=== PATIENT | female | born 1965 | race African-American/Black ===

== ENCOUNTER 2016-11-24 16:34 | Emergency (ER) | payer OTHER ==
--- NOTE | 2016-11-24 17:23 | ER Document Report ---
ED General - General Mode of Arrival: Medic Information source: Patient TRAVEL OUTSIDE OF THE [place] IN LAST 30 DAYS: No - HPI Patient complains to provider of: Syncopal Episode Onset: Just prior to arrival Onset/Duration: Sudden Associated symptoms: Body/muscle aches, Nonproductive cough, Fever, Headache, Nausea, Sinus pain/drainage, Sweating, Weakness Similar symptoms previously: Yes - October 2016 <STACEY ANDREWS - Last Filed: 11/24/16 17:24> <FRIDA PEACE - Last Filed: 11/24/16 18:49> - General Chief Complaint: Passed Out Prior to Arrival Stated Complaint: POSSIBLE SYNCOPE Notes: Patient is a 51-year-old female presenting to the emergency department from urgent care via EMS after a possible syncopal episode just prior to arrival. Patient states that she was at urgent care for flulike symptoms including body aches, cough, congestion, headache, diaphoresis, and throat pain. Patient states while she was waiting, she became weak and wanted to lay down her car, so she was on her way to the car when she felt like she was going to pass out. Patient decided to come inside and let the office manager receptionist know, and that is when she states that she passed out at the desk. Patient reports having similar symptoms in October 2016, but she did not have a syncopal episode. She states that she went to urgent care and received an antibiotic. (STACEY ANDREWS) - Related Data Allergies/Adverse Reactions: Penicillins Allergy (Verified 01/26/15 19:04) Past Medical History - General Information source: Patient - Social History Smoking Status: Never Smoker Family History: Reviewed & Not Pertinent - Immunizations Hx Diphtheria, Pertussis, Tetanus Vaccination: Yes <STACEY ANDREWS - Last Filed: 11/24/16 17:24> Review of Systems - Review of Systems Constitutional: See HPI, Diaphoresis, Fever, Weakness, Other - Body Aches EENT: See HPI, Nose congestion, Throat pain - "scratchy", Other - Sneezing Cardiovascular: See HPI, Syncope Respiratory: See HPI, Cough Gastrointestinal: See HPI, Nausea Genitourinary: No symptoms reported Female Genitourinary: No symptoms reported Musculoskeletal: No symptoms reported Skin: No symptoms reported Hematologic/Lymphatic: No symptoms reported Neurological/Psychological: No symptoms reported -: Yes All other systems reviewed and negative <JULIANAGATOSTACEY - Last Filed: 11/24/16 17:24> Physical Exam - General General appearance: Alert - HEENT Head: Normocephalic, Atraumatic Eyes: Normal Pupils: PERRL Ears: Normal Tympanic membrane: Normal Mouth/Lips: Normal Pharynx: Normal - Respiratory Respiratory status: No respiratory distress Chest status: Nontender Breath sounds: Normal Chest palpation: Normal - Cardiovascular Rhythm: Regular Heart sounds: Normal auscultation Murmur: No - Abdominal Inspection: Normal Tenderness: Nontender - Back Back: Normal, Nontender - Extremities General upper extremity: Normal inspection, Nontender General lower extremity: Normal inspection, Nontender - Neurological Neuro grossly intact: Yes Cognition: Normal Orientation: AAOx4 [place] Coma Scale Eye Opening: Spontaneous [place] Coma Scale Verbal: Oriented [place] Coma Scale Motor: Obeys Commands [place] Coma Scale Total: 15 Speech: Normal - Psychological Associated symptoms: Normal affect, Normal mood - Skin Skin Temperature: Warm Skin Moisture: Dry Skin Color: Normal <STACEY ANDREWS - Last Filed: 11/24/16 17:24> Course <VINICIO ANDREWSSSICA - Last Filed: 11/24/16 17:24> - Laboratory Result Diagrams: 11/24/16 17:45 11/24/16 17:45 - EKG Interpretation by Dc EKG shows normal: Sinus rhythm Rate: Normal Rhythm: NSR <FRIDA PEACE Librado - Last Filed: 11/24/16 18:49> - Re-evaluation Re-evalutation: 11/24/16 18:41 Clinically the patient appears to have acute sinusitis. She was not technically orthostatic by the numbers but was symptomatic when up. We will give her a fluid bolus. She is feeling better and will plan discharge after the fluids are completed. We will treat the sinusitis at this point. Her flu test was negative. She had prodromal symptoms. She has no Underlying cardiac structural disease or cardiac history. (FRIDA PEACE) - Vital Signs Vital signs: Temp Pulse Resp BP Pulse Ox 100.0 F 95 18 122/73 96 11/24/16 16:45 11/24/16 18:31 11/24/16 16:45 11/24/16 18:31 11/24/16 16:45 - Laboratory Laboratory results interpreted by me: 11/24/16 11/24/16 17:45 17:45 RBC 5.59 H MCV 70 L MCH 22.1 L MCHC 31.7 L RDW 16.1 H Seg Neutrophils % 81.9 H Lymphocytes % 7.3 L Total Protein 8.3 H - EKG Interpretation by Me Additional EKG results interpreted by me: 11/24/16 18:20 Borderline T-wave flattening/abnormalities but nonspecific. (FRIDA PEACE) Discharge <STACEY ANDREWS - Last Filed: 11/24/16 17:24> <FRIDA PEACE - Last Filed: 11/24/16 18:49> - Discharge Clinical Impression: Syncope, Acute sinusitis Condition: Good Disposition: HOME, SELF-CARE Additional Instructions: SYNCOPAL EPISODE: Syncope (fainting or near-fainting) can occur from many different health problems. Or it can be a simple fainting spell requiring no treatment. It is safe for you to go home, but further evaluation will likely be necessary. Your work-up may include tests for internal bleeding, heart disease, medication problems, or near-strokes. Tests are not always required, however, depending on the nature of your problem. The warning signs of an impending faint include: dizziness, lightheadedness , nausea, hot flashes, tingling, and weakness. If this happens, lay down and put your feet up, then wait until all of these symptoms have passed before standing up again. If these episodes become recurrent, or if you develop chest pain, heart palpitations, mental confusion, blurred vision, or headache, then you should call the physician, or go to the emergency room. Prescriptions: Azithromycin [Zithromax 250 mg Tablet] 250 mg PO ASDIR PRN #6 tablet PRN Reason: Referrals: [facility] [Provider Group] - Follow up as needed Scribe Attestation: 11/24/16 18:45 I personally performed the services described in the documentation, reviewed and edited the documentation which was dictated to the scribe in my presence, and it accurately records my words and actions. (FRIDA PEACE) Scribe Documentation - Scribe Written by Scribe:: Stacey Andrews 11/24/2016 [id number] acting as scribe for :: Chava <STACEY ANDREWS - Last Filed: 11/24/16 17:24>
[2016-11-24 18:11] LABS: ABSOLUTE BASOPHILS # (AUTO) 0.1 10^3/uL (0.0-0.2); ABSOLUTE EOSINOPHILS # (AUTO) 0.1 10^3/uL (0.0-0.6); ABSOLUTE LYMPHOCYTES (AUTO) 0.6 10^3/uL (0.5-4.7); ABSOLUTE MONOCYTES (AUTO) 0.7 10^3/uL (0.1-1.4); ABSOLUTE NEUT (AUTO) 6.5 10^3/uL (1.7-8.2); BASOPHILS % (AUTO) 0.7 % (0-2); EOSINOPHILS % (AUTO) 1.2 % (0-6); HEMATOCRIT 38.9 % (36.0-47.0); HEMOGLOBIN 12.3 g/dL (12.0-15.5); LYMPHOCYTES % (AUTO) 7.3 % (13-45); MEAN CORPUSCULAR HEMOGLOBIN 22.1 pg (27.0-33.4); MEAN CORPUSCULAR HGB CONC 31.7 g/dL (32.0-36.0); MEAN CORPUSCULAR VOLUME 70 fl (80-97); MONOCYTES % (AUTO) 8.9 % (3-13); RED BLOOD COUNT 5.59 10^6/uL (3.72-5.28); RED CELL DISTRIBUTION WIDTH 16.1 % (11.5-14.0); SEGMENTED NEUTROPHILS % (AUTO) 81.9 % (42-78); WHITE BLOOD COUNT 7.9 10^3/uL (4.0-10.5)
[2016-11-24 18:31] LABS: ALANINE AMINOTRANSFERASE 28 U/L (9-52); ALBUMIN 4.4 g/dL (3.5-5.0); ALKALINE PHOSPHATASE 96 U/L (38-126); ANION GAP 13 (5-19); ASPARTATE AMINO TRANSFERASE 24 U/L (14-36); BILIRUBIN,DIRECT 0.1 mg/dL (0.0-0.4); BILIRUBIN,TOTAL 0.5 mg/dL (0.2-1.3); BLOOD UREA NITROGEN 9 mg/dL (7-20); CALCIUM 9.5 mg/dL (8.4-10.2); CARBON DIOXIDE 27 mmol/L (22-30); CHLORIDE 102 mmol/L (98-107); CREATINE KINASE 89 U/L (30-135); CREATININE RESULT 0.97 mg/dL (0.52-1.25); GLUCOSE 108 mg/dL (75-110); POTASSIUM 3.8 mmol/L (3.6-5.0); SODIUM 141.7 mmol/L (137-145); TOTAL PROTEIN 8.3 g/dL (6.3-8.2)
[2016-11-24 18:34] VITALS: BP 122/73
[2016-11-24] MEDS ORDERED: NORMAL SALINE 1000 ML 500 ML IV ONE (18:36)
[2016-11-24 18:42] LABS: CREATINE KINASE MB < 0.22 ng/mL (<4.55); TROPONIN I < 0.012 ng/mL
[2016-11-24] MEDS ORDERED: AZITHROMYCIN 250 MG TABLET PO ONE (19:10)
--- NOTE | 2016-11-24 20:48 | EKG REPORT ---
SEVERITY:- BORDERLINE ECG - SINUS RHYTHM BORDERLINE T WAVE ABNORMALITIES : Confirmed by: Rosemarie Cleveland 24-Nov-2016 20:47:55
== END 2016-11-24 19:30 | disposition home or self-care (01) ==
LOC: ER 16:34
DX: J01.90 Acute sinusitis, unspecified (principal); R55 Syncope and collapse; R61 Generalized hyperhidrosis; R50.9 Fever, unspecified; R53.1 Weakness; R09.81 Nasal congestion; R06.7 Sneezing; R09.89 Other specified symptoms and signs involving the circulatory and respiratory systems; R11.0 Nausea; M79.1 Myalgia; Z88.0 Allergy status to penicillin
CPT/HCPCS: 93005; 99284; 96360; 36415; 82553; 82550; 85025; 80053; 84484; 87804; 93010; J7030

== ENCOUNTER 2017-12-21 15:57 | Emergency (ER) | payer OTHER ==
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
[2017-12-21] MEDS ORDERED: ACETAMINOPHEN 325 MG TABLET PO ONE (17:40)
[2017-12-21] MEDS ORDERED: IBUPROFEN 600 MG TABLET PO ONE (17:40)
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
[2017-12-21 18:20] VITALS: BP 132/72
== END 2017-12-21 18:18 | disposition home or self-care (01) ==
LOC: ER 15:57
DX: S20.211A Contusion of right front wall of thorax, initial encounter (principal); V49.50XA Passenger injured in collision with unspecified motor vehicles in traffic accident, initial encounter; Z88.0 Allergy status to penicillin
CPT/HCPCS: 99283

== ENCOUNTER 2020-01-10 23:56 | Emergency (ER) | payer OTHER ==
[2020-01-11 00:55] VITALS: BP 147/74
== END 2020-01-11 00:58 | disposition left against medical advice (07) ==
LOC: ER 23:56
DX: Z53.21 Procedure and treatment not carried out due to patient leaving prior to being seen by health care provider (principal)